=== PATIENT | female | born 1940 | race Caucasian/White ===

== ENCOUNTER 2021-09-23 15:01 | Inpatient (IN) ==
[2021-09-24] MEDS: *HR* OxyCODONE/APAP 5/325 TABLET PO PRN (21:04)
[2021-09-24] MEDS: Mirtazapine 15 MG TABLET PO SCH (21:05)
[2021-09-25] MEDS ORDERED: *HR* Enoxaparin 40 MG/0.4 ML SYRINGE SQ SCH ×2 (06:00→07:00)
[2021-09-25 06:08] LABS: Basophils # 0.1 K/mcL (0.0-0.2); Basophils % 0.8 %; Eosinophils # 0.2 K/mcL (0.0-0.6); Eosinophils % 3.1 %; Hematocrit 22.8 % (35.3-44.9); Hemoglobin 7.3 g/dL (11.5-15.4); Immature Granulocytes % 0.5 % (0-4); Lymphocytes # 0.8 K/mcL (0.6-4.6); Lymphocytes % 13.5 %; Mean Corpuscular Hemoglobin 30.9 pg (28.0-33.3); Mean Corpuscular Volume 96.6 fL (83.0-100.0); Mean Platelet Volume 10.5 fL (9.4-12.4); Monocytes # 1.1 K/mcL (0.0-1.3); Monocytes % 18.4 %; Platelet Count 209 K/mcL (140-400); Red Blood Count 2.36 M/mcL (3.82-4.97); Red Cell Distribution Width 13.7 % (11.5-14.5); Segmented Neutrophils % 63.7 %; White Blood Count 6.2 K/mcL (4.3-11.1)
[2021-09-25] MEDS: *HR* OxyCODONE/APAP 5/325 TABLET PO PRN ×2 (06:39→15:20)
[2021-09-25] MEDS: amLODIPine 5 MG TABLET PO SCH (08:07)
[2021-09-25] MEDS: Aspirin 325 MG TABLET PO SCH (08:07)
[2021-09-25] MEDS: BuPROPion XL (24 HR) 150 MG TABLET PO SCH (08:08)
[2021-09-25 09:10] LABS: BUN/Creatinine Ratio 23 (6-26); Blood Urea Nitrogen 18 mg/dL (8-23); Calcium 7.8 mg/dL (8.6-10.3); Carbon Dioxide 28 mEq/L (23-29); Chloride 106 mEq/L (98-107); Glucose 87 mg/dL (70-105); Osmolality,Calculated 287 (280-300); Sodium 138 mEq/L (136-145); eGFR For African Americans > 60 (> 60); eGFR For Non-African Americans > 60 (> 60)
[2021-09-25] MEDS: Mirtazapine 15 MG TABLET PO SCH (19:37)
[2021-09-26] MEDS: *HR* OxyCODONE/APAP 5/325 TABLET PO PRN ×3 (02:16→22:22)
[2021-09-26] MEDS: amLODIPine 5 MG TABLET PO SCH (07:56)
[2021-09-26] MEDS: BuPROPion XL (24 HR) 150 MG TABLET PO SCH (07:56)
[2021-09-26] MEDS: Acetaminophen 325 MG TABLET PO PRN (09:39)
[2021-09-26] MEDS: Ibuprofen 600 MG TABLET PO PRN (20:41)
[2021-09-26] MEDS: Mirtazapine 15 MG TABLET PO SCH (20:42)
[2021-09-27 06:02] LABS: Hematocrit 26.6 % (35.3-44.9); Hemoglobin 8.2 g/dL (11.5-15.4); Mean Corpuscular HGB Conc 30.8 g/dL (31.6-35.5); Mean Corpuscular Hemoglobin 31.2 pg (28.0-33.3); Mean Corpuscular Volume 101.1 fL (83.0-100.0); Mean Platelet Volume 10.8 fL (9.4-12.4); Platelet Count 200 K/mcL (140-400); Red Blood Count 2.63 M/mcL (3.82-4.97); Red Cell Distribution Width 13.6 % (11.5-14.5)
[2021-09-27 06:16] LABS: Alanine Aminotransferase 4 Units/L (7-52); Albumin/Globulin Ratio 1.2 (1.1-2.2); Alkaline Phosphatase 50 Units/L (34-104); Aspartate Amino Transferase 14 Units/L (13-39); BUN/Creatinine Ratio 21 (6-26); Bilirubin,Total 0.4 mg/dL (0.3-1.0); Blood Urea Nitrogen 15 mg/dL (8-23); Calcium 7.9 mg/dL (8.6-10.3); Carbon Dioxide 27 mEq/L (23-29); Chloride 105 mEq/L (98-107); Globulin 2.5 g/dL (2.4-3.5); Glucose 82 mg/dL (70-105); Osmolality,Calculated 282 (280-300); Potassium 4.3 mEq/L (3.5-5.1); Sodium 136 mEq/L (136-145); Total Protein 5.5 g/dL (6.4-8.9); eGFR For African Americans > 60 (> 60); eGFR For Non-African Americans > 60 (> 60)
[2021-09-27] MEDS: *HR* OxyCODONE/APAP 5/325 TABLET PO PRN ×2 (08:07→19:47)
[2021-09-27] MEDS: BuPROPion XL (24 HR) 150 MG TABLET PO SCH (08:07)
[2021-09-27] MEDS: Aspirin 325 MG TABLET PO SCH (08:07)
[2021-09-27] MEDS: Ibuprofen 600 MG TABLET PO PRN ×2 (08:07→17:06)
[2021-09-27] MEDS: amLODIPine 5 MG TABLET PO SCH (08:08)
[2021-09-27] MEDS: Mirtazapine 15 MG TABLET PO SCH (19:47)
[2021-09-28] MEDS: Ibuprofen 600 MG TABLET PO PRN ×2 (05:00→15:13)
[2021-09-28] MEDS: *HR* OxyCODONE/APAP 5/325 TABLET PO PRN ×3 (06:00→20:08)
[2021-09-28] MEDS: BuPROPion XL (24 HR) 150 MG TABLET PO SCH (08:18)
[2021-09-28] MEDS: amLODIPine 5 MG TABLET PO SCH (08:18)
[2021-09-28] MEDS: Aspirin 325 MG TABLET PO SCH (08:18)
[2021-09-28] MEDS: Acetaminophen 325 MG TABLET PO PRN (12:18)
[2021-09-28] MEDS: Mirtazapine 15 MG TABLET PO SCH (20:08)
[2021-09-29] MEDS: Ibuprofen 600 MG TABLET PO PRN ×3 (01:12→15:31)
[2021-09-29] MEDS: *HR* OxyCODONE/APAP 5/325 TABLET PO PRN ×3 (05:22→20:12)
[2021-09-29] MEDS: Aspirin 325 MG TABLET PO SCH (09:02)
[2021-09-29] MEDS: amLODIPine 5 MG TABLET PO SCH (09:02)
[2021-09-29] MEDS: BuPROPion XL (24 HR) 150 MG TABLET PO SCH (09:02)
[2021-09-29 10:50] LABS: Bilirubin,Urine Negative (Negative); Blood,Urine Negative (Negative); Clarity,Urine Clear (Clear); Color,Urine Yellow (Yellow); Glucose,Urine (UA) Normal (Normal); Ketones,Urine 15 mg/dL (Negative); Leukocyte Esterase,Urine Trace (Negative); Nitrite,Urine Negative (Negative); PH,Urine 6.5 pH Units (5.0-8.0); Protein,Urine Negative (Neg-Trace); Urobilinogen,Urine Normal (Normal)
[2021-09-29 11:06] LABS: Squamous Epithelial Cell,Urine Moderate per hpf (None-Few); Transitional Epi Cells,Urine Few per hpf (None-Few); WBC,Urine 15-30 per hpf (0-3)
[2021-09-29] MEDS: Acetaminophen 325 MG TABLET PO PRN (14:05)
[2021-09-29] MEDS: Mirtazapine 15 MG TABLET PO SCH (20:12)
[2021-09-30] MEDS: *HR* OxyCODONE/APAP 5/325 TABLET PO PRN ×3 (02:49→22:30)
[2021-09-30] MEDS: Ibuprofen 600 MG TABLET PO PRN ×3 (06:20→20:46)
[2021-09-30] MEDS: amLODIPine 5 MG TABLET PO SCH (08:27)
[2021-09-30] MEDS: Acetaminophen 325 MG TABLET PO PRN (08:27)
[2021-09-30] MEDS: BuPROPion XL (24 HR) 150 MG TABLET PO SCH (08:28)
[2021-09-30] MEDS: Aspirin 325 MG TABLET PO SCH (08:28)
[2021-09-30] MEDS: Mirtazapine 15 MG TABLET PO SCH (19:33)
[2021-10-01] MEDS: Ibuprofen 600 MG TABLET PO PRN ×2 (05:42→12:19)
[2021-10-01 07:31] VITALS: BP 137/71; PULSE 91; RESP 14; TEMP 98.1; O2SAT 94
[2021-10-01] MEDS: Acetaminophen 325 MG TABLET PO PRN (08:23)
[2021-10-01] MEDS: BuPROPion XL (24 HR) 150 MG TABLET PO SCH (08:23)
[2021-10-01] MEDS: Aspirin 325 MG TABLET PO SCH (08:23)
[2021-10-01] MEDS: amLODIPine 5 MG TABLET PO SCH (08:23)
[2021-10-01] MEDS: *HR* OxyCODONE/APAP 5/325 TABLET PO PRN (13:23)
== END 2021-10-01 16:13 | disposition home health service (06) | DRG 559 ==
LOC: INPGRE 09-24 18:39
PROVIDERS: ADMIT Family Medicine; ATTEND Family Medicine